=== PATIENT | female | born 1965 | race Caucasian/White ===

== ENCOUNTER 2023-05-27 10:04 | Emergency (ER) | payer BC ==
--- OUTSIDE RECORDS SUMMARY | 2023-05-27 10:06 | XMS REPORT | Continuity of Care Document ---
:1965 Author Organization [facility] t Address [address] [place] [id number] Care Team Providers Name Role Phone [phone] Primary Care Physician Unavailable Namrata Attending Clinician Unavailable TOM_BI_Parul Attending Clinician Unavailable Ed Hunter Attending Clinician [phone] Sim_W Admitting Clinician Unavailable [email or web address] Admitting Clinician Unavailable Payers Payer Name Policy Type Policy Number Effective Date Expiration Date [place] [id number] 2021 (PPO) 00:00:00 [employer]ETNA SIGNATURE [id number] 2018 ADMINISTRATORS 00:00:00 GENERIC Problems Condition Condition Condition Status Onset Resolution Last Treating Co mments Source Name Details Category Date Date Treatment Clinician Date Kenisha Kenisha Problem Active Ellen via thyroiditi Thyroiditi 3-16 Me dical s s 00:00: 00 Allergies, Adverse Reactions, Alerts This patient has no known allergies or adverse reactions. Social History Smoking Status Start Date Stop Date Source Never Smoker [facility] Medications Ordered Filled Start Stop Current Ordering Indication Dosage Frequency Signature Comments Components Source Medication Medication Date Date Medication? Clinician (SIG) Name Name bupropion bupropion No 1 Q1D bupropion [facility] HCl XL 300 HCl XL 300 HCl XL 300 Medical mg 24 hr mg 24 hr mg 24 hr tablet, tablet, tablet, extended extended extended release release release Take 1 Take 1 Take 1 tablet tablet tablet every day every day every day by oral by oral by oral route. route. route. zolpidem ER zolpidem ER No 1 zolpidem [facility] 6.25 mg 6.25 mg ER 6.25 mg Med ical tablet,exte tablet,exte tablet,ext nded nded ended release,mul release,mul release,mu tiphase tiphase ltiphase Take 1 Take 1 Take 1 tablet as tablet as tablet as needed by needed by needed by oral route. oral route. oral route. bupropion bupropion No bupropion [place] HCl XL 300 HCl XL 300 HCl XL 300 da mg 24 hr mg 24 hr mg 24 hr Med ical tablet, tablet, tablet, Group extended extended extended release release release TAKE ONE TAKE ONE TAKE ONE (1) (1) (1) TABLET(S) TABLET(S) TABLET(S) BY MOUTH BY MOUTH BY MOUTH ONCE A DAY. ONCE A DAY. ONCE A DAY. fluticasone fluticasone No fluticason [place] propionate propionate e da 50 50 propionate Medical mcg/actuati mcg/actuati 50 G roup on nasal on nasal mcg/actuat spray,suspe spray,suspe ion nasal nsion [place] nsion [place] spray,susp 1 spray 1 spray ension every day every day [place] 1 by by spray intranasal intranasal every day route for route for by 90 days. 90 days. intranasal route for 90 days. melatonin melatonin No melatonin [place] Take two Take two Take two da tablets PO tablets PO tablets PO Medical daily. daily. daily. Group Vital Signs Vital Name Observation Time Observation Value Comments Source BP Diastolic 2022-10-02 00:00:00 103 mm[Hg] [facility] Height 2022-10-02 00:00:00 66 [in_i] [facility] BMI (Body Mass 2022-10-02 00:00:00 29.3 kg/m2 [facility] Medical Index) Group BP Systolic 2022-10-02 00:00:00 145 mm[Hg] [facility] Body Weight 2022-10-02 00:00:00 181.5 [lb_av] [facility] BP Diastolic 2021-11-06 00:00:00 80 mm[Hg] [facility] Height 2021-11-06 00:00:00 66 [in_i] [facility] (Body Mass 2021-11-06 00:00:00 29.4 kg/m2 [facility] Medical Index) BP Systolic 2021-11-06 00:00:00 150 mm[Hg] [facility] Body Weight 2021-11-06 00:00:00 2912 [oz_av] [facility] Procedures Procedure Date / Time Performed Performing Clinician [facility] Encounters Start End Encounter Admission Attending Care Care Encounter Source Date/Time Date/Time Type Type Clinicians Facility Department ID 2022-11-19 2022-11-19 Outpatient [facility]W [facility] [id number] [place] 00:00:00 00:00:00 0329 [facility] 2022-10-19 2022-10-19 Outpatient Yan_W [facility] MMG [id number] [place] 00:00:00 00:00:00 0226 [facility] Group 2022-10-19 2022-10-19 Outpatient Yan_W [facility] MMG [id number] [place] 00:00:00 00:00:00 0315 Medical Group 2022-10-02 2022-10-02 Outpatient Yan_W MMG MMG [id number] [place] 00:00:00 00:00:00 0220 [facility] Group 2022-10-02 2022-10-02 Outpatient Yan_W MMG MMG [id number] [place] 00:00:00 00:00:00 0209 Medical Group 2022-10-02 2022-10-02 Outpatient Yan_W MMG MMG [id number] [place] 00:00:00 00:00:00 0215 Medical Group 2022-10-02 2022-10-02 RADHA Ferreira [place] - [id number] [facility] 00:00:00 00:00:00 : Suzanne Ball [facility] [address], [facility], Otolaryngol [facility] [address] , Ph. 2022-09-16 2022-09-16 Outpatient Yan_W MMG MMG [id number] [place] 00:00:00 00:00:00 0124 Medical Group 2022-09-16 2022-09-16 Outpatient Yan_W MMG MMG [id number] [place] 00:00:00 00:00:00 0208 [facility] 2022-09-04 2022-09-04 Outpatient Yan_W MMG MMG [id number] [place] 00:00:00 00:00:00 0112 [facility] 2021-11-06 2021-11-06 Outpatient [facility] PRIV PRIV [id number] [facility] 12:56:00 12:56:00 er_T [id number] Medica l 2021-11-06 2021-11-06 [facility] 16 [facility] 00:00:00 00:00:00 [facility] [place]: [facility] [address] , Office* [address], [place] [address] , Ph. 2021-11-06 2021-11-06 Outpatient Colon, PRIV PRIV [id number] 00:00:00 00:00:00 Ed [id number] [facility] [id number] 2021-11-05 2021-11-05 Outpatient [facility] PRIV PRIV [id number] [facility] 02:40:00 02:40:00 er_T [id number] Medica l 2021-11-04 2021-11-04 Outpatient [facility] PRIV PRIV [id number] [facility] 11:39:00 11:39:00 er_T [id number] Medica l 2020-07-05 2020-07-05 Outpatient EL [facility] [id number] 13:40:16 13:40:16 Homer o n Results This patient has no known results.
[2023-05-27] MEDS ORDERED: ASPIRIN 81 MG CHEWABLE TABLET ONE (10:24)
[2023-05-27 10:33] LABS: Absolute Lymphocytes (CBC) 1.7 K/uL (0.7-4.9); Lymphocytes % 32.5 % (15.3-44.8); MCV 97.8 fL (80-100); MPV 8.9 fL (7.6-11.3); Platelets 215 thou/uL (152-406); RBC Red Blood Cell Count 3.88 M/uL (3.86-4.86)
[2023-05-27 10:51] LABS: Troponin High Sensitivity 4.5 pg/mL (<58.9)
--- NOTE | 2023-05-27 10:53 | RAD REPORT ---
EXAM DESCRIPTION: RAD - Chest Single View - 05/27/2023 10:40 am CLINICAL HISTORY: CHEST PAIN Chest pain. COMPARISON: No comparisons FINDINGS: Portable technique limits examination quality. The lungs are grossly clear. The heart is normal in size. No displaced fractures. IMPRESSION: No acute intrathoracic process suspected.
[2023-05-27] MEDS ORDERED: ONDANSETRON 4 MG/2 ML VIAL ONE (11:30)
[2023-05-27] MEDS ORDERED: MORPHINE 4 MG/ML SYR ONE (11:30)
--- NOTE | 2023-05-27 14:15 | EDPHYS ---
Physician Documentation [facility] Name: Jossy Samano Age: 57 yrs Sex: Female : 1965 Arrival Date: 05/27/2023 Time: 10:04 Bed 8 Private MD: ED Physician Charles Pride HPI: 05/27 11:30 This 57 yrs old Female presents to ER via Ambulatory with complaints of Chest Pain. ms3 11:30 57-year-old female with no past medical history presents to the emergency department ms3 for chest pain that began at 5 AM is located in the left side, rated a 3/10, and described as throbbing. Patient denies radiation of the pain. Patient denies nausea, vomiting, shortness of breath, diaphoresis. Patient denies any alleviating or inciting factors. Historical: - Allergies: 10:17 No Known Allergies; iw - Home Meds: 10:17 Bupropion Oral [Active]; hormones [Active]; iw - PMHx: 10:17 Hormonal issues; iw - PSHx: 10:17 section; iw - Immunization history:: Adult Immunizations not up to date. - Social history:: Smoking status: Patient denies any tobacco usage or history of. ROS: 11:30 Constitutional: Negative for fever, and chills. Neck: Negative for injury, pain, and ms3 swelling, Respiratory: Negative for shortness of breath, cough, wheezing, and pleuritic chest pain, Abdomen/GI: Negative for abdominal pain, nausea, vomiting, diarrhea, and constipation, MS/Extremity: Negative for injury and deformity, Skin: Negative for injury, rash, and discoloration, 11:30 Cardiovascular: Positive for chest pain, 11:30 All other systems are negative, Exam: 11:30 Constitutional: This is a well developed, well nourished patient who is awake, alert, ms3 and in no acute distress. Head/Face: Normocephalic, atraumatic. Neck: Trachea midline, no cervical lymphadenopathy. Supple, full range of motion without nuchal rigidity, or vertebral point tenderness. No Meningismus. Chest/axilla: Normal chest wall appearance and motion. Nontender with no deformity. Cardiovascular: Regular rate and rhythm with a normal S1 and S2. No gallops, murmurs, or rubs. Normal PMI, no JVD. No pulse deficits. Respiratory: Lungs have equal breath sounds bilaterally, clear to auscultation and percussion. No rales, rhonchi or wheezes noted. No increased work of breathing, no retractions or nasal flaring. Abdomen/GI: Soft, non-tender, with normal bowel sounds. No distension or tympany. No guarding or rebound. No evidence of tenderness throughout. Skin: Warm, dry with normal turgor. Normal color with no rashes, no lesions, and no evidence of cellulitis. MS/ Extremity: Pulses equal, no cyanosis. Neurovascular intact. Full, normal range of motion. 11:30 ECG was reviewed by the Attending Physician. Vital Signs: 10:15 Resp 16; Temp 98.1; Pulse Ox 100% on R/A; Weight 80.74 kg; Height 5 ft. 5 in. ; iw 10:15 BP 190 / 105; Pulse 69; Resp 18; Pulse Ox 100% on R/A; Pain 8/10; ld1 11:37 BP 147 / 83; Pulse 57; Resp 18; Pulse Ox 100% on R/A; ld1 12:27 BP 149 / 87; Pulse 58; Resp 18; Pulse Ox 100% on R/A; ld1 13:04 BP 141 / 84; Pulse 59; Resp 18; Pulse Ox 100% on R/A; ld1 14:30 BP 171 / 91; Pulse 72; Resp 14; Pulse Ox 100% on R/A; db 10:15 Body Mass Index 29.62 (80.74 kg, 165.1 cm) iw 10:15 Pain Scale: Adult ld1 MDM: 10:15 Patient medically screened. ms3 11:30 Differential diagnosis: abnormal EKG, acute myocardial infarction, coronary artery ms3 disease chest wall pain. The patient was not given aspirin in the Emergency Department. Patient reports taking aspirin within the past 24 hours. 14:45 HEART Score: History: Slightly Suspicious (0), ECG: Normal (0), Age: > 45 and < 65 ms3 years (1), Risk Factors: No Risk Factors Known (0), Troponin: < or = 1 x Normal Limit (0), Total Score = 1. Data reviewed: vital signs, nurses notes, lab test result(s), EKG, radiologic studies, and as a result, I will discharge patient. Consideration of Admission/Observation Escalation of care including admission/observation considered. Heart score 1. Troponin normal x2.. I considered the following discharge prescriptions or medication management in the emergency department Medications were administered in the Emergency Department. See MAR. Independent interpretation of the following test(s) in the Emergency Department EKG: See my EKG interpretation above X-Ray: My interpretation is CXR image reviewed does not show PNA, PTX, or pulmonary edema. Counseling: I had a detailed discussion with the patient and/or guardian regarding the historical points, exam findings, and any diagnostic results supporting the discharge/admit diagnosis, lab results, radiology results, the need for outpatient follow up, to return to the emergency department if symptoms worsen or persist or if there are any questions or concerns that arise at home. Special discussion: Based on the patient's history, exam, and Dx evaluation, there is no indication for emergent intervention or inpatient Tx. It is understood by the patient/guardian that if the Sx's persist or worsen they need to return immediately for re-evaluation. ED course: Offered patient hospital observation and patient declines. Discussed strict return precautions with patient to include vomiting, shortness of breath, sweating, worsening symptoms, or any other concerns. Patient understands and agrees with plan. Patient to follow-up Dr. Kramer in 1 to 2 days.. 05/27 10:08 Order name: Basic Metabolic Panel; Complete Time: 11:09 ms3 05/27 10:08 Order name: CBC with Diff; Complete Time: 11:09 ms3 05/27 10:08 Order name: Troponin HS; Complete Time: 11:09 ms3 05/27 11:39 Order name: Troponin HS; Complete Time: 12:33 ld1 05/27 12:42 Order name: D-Dimer; Complete Time: 13:59 ms3 05/27 10:08 Order name: XRAY Chest (1 view); Complete Time: 11:09 ms3 05/27 10:08 Order name: EKG; Complete Time: 10:09 ms3 05/27 10:08 Order name: Cardiac monitoring; Complete Time: 10:17 ms3 05/27 10:08 Order name: EKG - Nurse/Tech; Complete Time: 10:17 ms3 05/27 10:08 Order name: IV Saline Lock; Complete Time: 10:29 ms3 05/27 10:08 Order name: Labs collected and sent; Complete Time: 10:29 ms3 05/27 10:08 Order name: O2 Per Protocol; Complete Time: 10:10 ms3 05/27 10:08 Order name: O2 Sat Monitoring; Complete Time: 10: ms3 05/27 11:10 Order name: Repeat Cardiac Enzymes at: 1208; Complete Time: 12:05 ms3 EC:30 Rate is 67 beats/min. Rhythm is regular. QRS Deaver is Normal. SD interval is normal. QRS ms3 interval is normal. Clinical impression: NSR w/ Non-specific ST/T Changes. Interpreted by me. Reviewed by me. Administered Medications: 10:13 Not Given (PT TOOK PRIOR TO ARRIVALl): aspirinchewable tablet 324 mg PO once; 81 mg db tablets x 4 11:28 Drug: morphine IVP or IV 4 mg IVP once over 4 mins Route: IVP; Infused Over: 4 mins; ld1 Site: left antecubital; 14:40 Follow up: Response: No adverse reaction db 14:34 Drug: Ibuprofen PO 600 mg PO once Route: PO; db 14:40 Follow up: Response: No adverse reaction db Disposition Summary: 05/27/23 14:15 Discharge Ordered Notes: Location: Home ms3 Condition: Stable ms3 Diagnosis - Chest pain, unspecified ms3 - Elevated blood-pressure reading, without diagnosis of hypertension ms3 Followup: ms3 - With: Nnamdi Kramer MD - When: 1 - 2 days - Reason: Re-evaluation by your physician Discharge Instructions: - Discharge Summary Sheet ms3 - Nonspecific Chest Pain, Adult ms3 Forms: - Medication Reconciliation Form ms3 - Thank You Letter ms3 - Antibiotic Education ms3 - Prescription Opioid Use ms3 - Patient Portal Instructions ms3 - Leadership Thank You Letter ms3 Signatures: Dispatcher [employer] Saadia Francois RN CATRACHITO iw Charles Pride DO DO ms3 Leena Pride RN RN ld1 Tanisha Abad RN RN db
--- NOTE | 2023-05-27 14:15 | ER ---
Nurse's Notes [facility] Name: Jossy Samano Age: 57 yrs Sex: Female : 1965 Arrival Date: 05/27/2023 Time: 10:04 Bed 8 Private MD: Diagnosis: Chest pain, unspecified;Elevated blood-pressure reading, without diagnosis of hypertension Presentation: 05/27 10:15 Chief complaint: Patient states: left sided rib pain since 0500 today , intermittent , iw throbbing. Coronavirus screen: At this time, the client does not indicate any symptoms associated with coronavirus-19. Ebola Screen: Patient negative for fever greater than or equal to 101.5 degrees Fahrenheit, and additional compatible Ebola Virus Disease symptoms Patient denies exposure to infectious person. Patient denies travel to an Ebola-affected area in the 21 days before illness onset. No symptoms or risks identified at this time. Initial Sepsis Screen: Does the patient meet any 2 criteria? No. Patient's initial sepsis screen is negative. Does the patient have a suspected source of infection? No. Patient's initial sepsis screen is negative. Risk Assessment: Do you want to hurt yourself or someone else? Patient reports no desire to harm self or others. Onset of symptoms was May 27, 2023. 10:15 Method Of Arrival: Ambulatory iw 10:15 Acuity: LAURYN 3 iw Triage Assessment: 14:00 General: Appears in no apparent distress. General: Behavior is calm, cooperative. Pain: db Denies pain. Historical: - Allergies: 10:17 No Known Allergies; iw - Home Meds: 10:17 Bupropion Oral [Active]; hormones [Active]; iw - PMHx: 10:17 Hormonal issues; iw - PSHx: 10:17 section; iw - Immunization history:: Adult Immunizations not up to date. - Social history:: Smoking status: Patient denies any tobacco usage or history of. Screenin:15 [facility] ED Fall Risk Assessment (Adult) History of falling in the last 3 months, ld1 including since admission No falls in past 3 months (0 pts). Abuse screen: Denies threats or abuse. Denies injuries from another. Nutritional screening: No deficits noted. Tuberculosis screening: No symptoms or risk factors identified. Assessment: 10:15 General: Appears in no apparent distress. comfortable, Behavior is calm, cooperative, ld1 appropriate for age. Pain: Complains of pain in chest Pain does not radiate. Pain currently is 8 out of 10 on a pain scale. Quality of pain is described as squeezing, throbbing, Pain began 1 day ago. Is intermittent. Neuro: Level of Consciousness is awake, alert, obeys commands, Oriented to person, place, time, situation. Cardiovascular: Capillary refill < 3 seconds Patient's skin is warm and dry. Chest pain is described as mild. Respiratory: Airway is patent Respiratory effort is even, unlabored. GI: Abdomen is flat, non-distended. : No signs and/or symptoms were reported regarding the genitourinary system. EENT: No signs and/or symptoms were reported regarding the EENT system. Derm: No signs and/or symptoms reported regarding the dermatologic system. Musculoskeletal: No signs and/or symptoms reported regarding the musculoskeletal system. 14:30 Reassessment: Patient appears in no apparent distress at this time. Patient and/or db family updated on plan of care and expected duration. Pain level reassessed. Patient is alert, oriented x 3, equal unlabored respirations, skin warm/dry/pink. Patient states feeling better. Patient states symptoms have improved. Vital Signs: 10:15 Resp 16; Temp 98.1; Pulse Ox 100% on R/A; Weight 80.74 kg; Height 5 ft. 5 in. ; iw 10:15 BP 190 / 105; Pulse 69; Resp 18; Pulse Ox 100% on R/A; Pain 8/10; ld1 11:37 BP 147 / 83; Pulse 57; Resp 18; Pulse Ox 100% on R/A; ld1 12:27 BP 149 / 87; Pulse 58; Resp 18; Pulse Ox 100% on R/A; ld1 13:04 BP 141 / 84; Pulse 59; Resp 18; Pulse Ox 100% on R/A; ld1 14:30 BP 171 / 91; Pulse 72; Resp 14; Pulse Ox 100% on R/A; db 10:15 Body Mass Index 29.62 (80.74 kg, 165.1 cm) iw 10:15 Pain Scale: Adult ld1 ED Course: 10:06 Patient arrived in ED. im 10:07 Charles Pride DO is Attending Physician. ms3 10:10 Leena Pride, RN is Primary Nurse. ld1 10:15 Patient has correct armband on for positive identification. Placed in gown. Bed in low ld1 position. Call light in reach. Side rails up X2. noc analyst on. Pulse ox on. NIBP on. Door closed. Noise minimized. Warm blanket given. 10:15 No provider procedures requiring assistance completed. Patient maintains SpO2 ld1 saturation greater than 95% on room air. 10:17 Triage completed. iw 10:32 Inserted saline lock: 20 gauge in left antecubital area, using aseptic technique. Blood ds4 collected. 10:41 XRAY Chest (1 view) In Process Unspecified. EDMS 12:05 Troponin HS Sent. ld1 14:00 Arm band placed on. db 14:15 Nnamdi Kramer MD is Referral Physician. ms3 14:40 Provided Education on: DISCHARGE. db 14:40 IV discontinued, intact, bleeding controlled, No redness/swelling at site. db Administered Medications: 10:13 Not Given (PT TOOK PRIOR TO ARRIVALl): aspirinchewable tablet 324 mg PO once; 81 mg db tablets x 4 11:28 Drug: morphine IVP or IV 4 mg IVP once over 4 mins Route: IVP; Infused Over: 4 mins; ld1 Site: left antecubital; 14:40 Follow up: Response: No adverse reaction db 14:34 Drug: Ibuprofen PO 600 mg PO once Route: PO; db 14:40 Follow up: Response: No adverse reaction db Medication: 10:15 VIS not applicable for this client. ld1 Outcome: 14:15 Discharge ordered by . ms3 14:40 Discharged to home ambulatory, db 14:40 Condition: stable 14:40 Discharge instructions given to patient, Instructed on discharge instructions, follow up and referral plans. 14:49 Patient left the ED. db Signatures: Dispatcher [employer] EDMS Saadia Richardson, CATRACHITO WINSTON iw Lui Hermos[place] ds4 Charles Pride DO DO ms3 Leena Pride, CATRACHITO WINSTON ld1 Tanisha Abad RN RN db Anna Oneill
[2023-05-27] MEDS ORDERED: IBUPROFEN 200 MG TAB PO ONE (14:46)
[2023-05-27] MEDS ORDERED: IBUPROFEN 400 MG TAB ONE (14:46)
[2023-05-27 15:01] VITALS: TEMP 98.1; O2SAT 100
[2023-05-27 15:19] VITALS: BP 171/91
--- NOTE | 2023-05-28 17:01 | EKG ---
Test Date: 2023-05-27 Test Time: 10:20:44 Cardiology Nurse Practitioner: LILIBETH MEASUREMENT RESULTS: Intervals: Rate: 67 FL: 142 QRSD: 86 QT: 394 QTc: 416 [place]: P: 68 FL: 142 QRS: 74 T: 50 INTERPRETIVE STATEMENTS: Normal sinus rhythm Septal infarct, age undetermined Abnormal ECG No previous ECG available for comparison Electronically Signed On 05-28-23 16:56:54 CDT by Nnamdi Kramer
== END 2023-05-27 14:49 | disposition home or self-care (01) ==
LOC: ER 10:04
DX: R07.89 Other chest pain (principal); R03.0 Elevated blood-pressure reading, without diagnosis of hypertension
CPT/HCPCS: 85025; 80048; 36415; 85379; 84484 ×2; 71045; J2405; 93005; 96374; 99285